=== PATIENT | male | born 2000 | race Caucasian/White ===

== ENCOUNTER 2018-03-27 05:13 | Emergency (ER) | payer SELFPAY ==
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
[2018-03-27] MEDS ORDERED: Diphtheria,Pertussis(Acell),Tetanus Vaccine 0.5 ML Syringe IM ONE (05:40)
[2018-03-27] MEDS ORDERED: Bacitracin Oint 1 GM U/D Packet TOP ONE (06:12)
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
--- NOTE | 2018-03-27 09:33 | CR ---
EXAM DATE: 03/27/18 PATIENT'S AGE: 17 Patient: SMITA LING Facility: [place], [place] Site . Site : 2000 Study: XRay Extremity Right [id number]/3/2018 6:43:28 AM Ordering Physician: Loy Rodríguez Final Report: INDICATION: Injury and pain TECHNIQUE: Chest and right ribs 3 views. COMPARISON: None FINDINGS: Cardiovascular and mediastinum: Heart size and vasculature are normal in caliber and appearance. Mediastinum is within normal limits. Lungs and pleural spaces: Lungs are clear. No sign of infiltrate or mass. No sign of pleural effusion. No pneumothorax. Bones and soft tissues: Detailed oblique images of the right ribs demonstrate no fractures or bone lesions. IMPRESSION: Unremarkable chest and right ribs. Dictated by Juan Luis Rodriguez MD @ Mar 27 2018 7:00AM (Electronic Signature) Report Signed by Proxy. JESSICA
--- NOTE | 2018-03-27 09:33 | CR ---
EXAM DATE: 03/27/18 PATIENT'S AGE: 17 Patient: SMITA LING Facility: [place], [place] Site . Site : 2000 Study: XRay Extremity [id number]/3/2018 6:44:02 AM Ordering Physician: Loy Rodríguez Final Report: Indication: Injury and pain Technique: Left hand 2 views Comparison: None Findings: Bones: Alignment is normal. No fractures or bone lesions. Joint spaces: Unremarkable. Soft tissues: Unremarkable. Impression: No sign of acute injury. Dictated by Juan Luis Rodriguez MD @ Mar 27 2018 7:01AM (Electronic Signature) Report Signed by Proxy. JESSICA
== END 2018-03-27 07:44 | disposition home or self-care (01) ==
LOC: MW.ED 05:13
DX: S61.012A Laceration without foreign body of left thumb without damage to nail, initial encounter (principal); S61.211A Laceration without foreign body of left index finger without damage to nail, initial encounter; S61.213A Laceration without foreign body of left middle finger without damage to nail, initial encounter; Z23 Encounter for immunization; Y04.0XXA Assault by unarmed brawl or fight, initial encounter
CPT/HCPCS: 70450; 70450-26; 71101-26-RT; 71101-RT; 73120-26-LT; 73120-LT; 90471; 90715; 99284-25

== ENCOUNTER 2019-02-05 17:53 | Emergency (ER) | payer OTHER | END 2019-02-05 18:08 | disposition home or self-care (01) | LOC: MW.ED 17:53 | DX: Z53.21 Procedure and treatment not carried out due to patient leaving prior to being seen by health care provider (principal) ==